=== PATIENT | female | born 2000 | race Hispanic/Latino ===

== ENCOUNTER → 2019-10-19 | Outpatient (CLI) | payer BC | END | disposition home or self-care (01) | LOC: RAH 08:44 | PROVIDERS: ATTEND Urology Pediatric Urology | DX: N39.0 Urinary tract infection, site not specified (principal) | CPT/HCPCS: 51600; 74455; Q9958 ==

== ENCOUNTER 2019-11-29 00:21 | Emergency (ER) | payer BC, OTHER ==
[2019-11-29] MEDS ORDERED: KETOROLAC TROMETHAMINE 60 MG/2 ML VIAL ONE (00:46)
[2019-11-29] MEDS ORDERED: PHENAZOPYRIDINE HCL 200 MG TABLET ONE (00:47)
[2019-11-29] MEDS ORDERED: ACETAMINOPHEN EXTRA STRENGTH 500 MG TABLET ONE (00:49)
== END 2019-11-29 01:14 | disposition home or self-care (01) ==
LOC: EDH 00:21
DX: N39.0 Urinary tract infection, site not specified (principal)
CPT/HCPCS: 96372; 99284; J1885; 96374

== ENCOUNTER → 2024-03-29 | Outpatient (CLI) | payer OTHER ==
[2024-03-29 16:30] LABS: THYROID STIMULATING HORMONE 1.18 uIU/mL (0.36-3.74)
== END | disposition home or self-care (01) ==
LOC: LAB 13:19
PROVIDERS: ATTEND Student in an Organized Health Care Education/Training Program
DX: R00.2 Palpitations (principal)
CPT/HCPCS: 36415; 84439; 84443